=== PATIENT | female | born 2000 | race Caucasian/White ===

== ENCOUNTER 2022-03-28 21:36 | Emergency (ER) | payer BC ==
[~2022-03-28] VITALS: Ht 261.6 cm; Wt 90.9 kg
[2022-03-28 21:47] VITALS: TEMP 98.3
[2022-03-28 23:15] VITALS: BP 126/90; PULSE 81
== END 2022-03-28 23:15 | disposition home or self-care (01) ==
LOC: COL.ER 21:36
DX: S61.213A Laceration without foreign body of left middle finger without damage to nail, initial encounter (principal); Z28.311 Partially vaccinated for COVID-19; W26.0XXA Contact with knife, initial encounter